=== PATIENT | male | born 2000 | race Caucasian/White ===

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

== ENCOUNTER → 2020-09-21 | Outpatient (CLI) | payer BC ==
--- NOTE | 2020-09-24 03:55 | CT ---
EXAMINATION TYPE: CT abdomen pelvis wo con DATE OF EXAM: 09/21/2020 COMPARISON: 03/16/2019 HISTORY: 20-year-old male RT side pain, radiating into back. CT DLP: 368.5 mGycm. Automated exposure control for dose reduction was used. TECHNIQUE: Contiguous axial scanning of the abdomen and pelvis without IV contrast. Coronal and sagit betty reconstructions performed. FINDINGS: Heart normal size without pericardial effusion. Lung bases clear without pleural effusion. Noncontrast appearance of the liver shows borderline size at 17.8 cm. Otherwise, noncontrast appearan ce of the gallbladder, adrenal glands, kidneys, and pancreas show no gross abnormality. The spleen is borderline in size at 13.1 cm. No dilated small bowel, free fluid, or free air. A few borderline to mildly enlarged right lower quadrant mesenteric lymph nodes measuring up to 1 cm, refer to coronal image 27 and 28. Additional scattered nonenlarged mesenteric lymph nodes throughout the remainder of the abdomen. Normal appendix. Mild stool burden. No pericolonic inflammatory change. Bowel circumferential bladder wall thickening. No abnormal fluid collection in the pelvis or pelvic l ymphadenopathy. Bones: There are bilateral L5 pars interarticularis defects without spondylolisthesis. IMPRESSION: 1. Numerous scattered nonenlarged mesenteric lymph nodes. Lymph nodes in the right lower quadrant ar e borderline to mildly enlarged measuring up to 1 cm. Findings may reflect a mild mesenteric adenitis . 2. The appendix is normal. No nephrolithiasis or hydronephrosis seen. 3. Mild circumferential bladder wall thickening. Correlate to exclude cystitis. 4. Bilateral L5 pars defects without spondylolisthesis.
== END | disposition home or self-care (01) ==
LOC: RADCTMAIN 17:55
PROVIDERS: ATTEND Family Medicine
DX: R59.0 Localized enlarged lymph nodes (principal); N32.89 Other specified disorders of bladder
CPT/HCPCS: 74176

== ENCOUNTER → 2021-02-22 | Outpatient (CLI) | payer BC ==
--- NOTE | 2021-02-23 09:19 | US ---
EXAMINATION TYPE: US groin RT DATE OF EXAM: 02/22/2021 COMPARISON: NONE CLINICAL HISTORY: L04.9 Acute lymphadenitis, unspecified. palpable within right groin for 2 weeks, no illness Multiple lymph nodes seen within right inguinal canal, largest = 2.7 x 1.7 x 0.7cm IMPRESSION: Right inguinal adenopathy.
== END | disposition home or self-care (01) ==
LOC: RADUSWWP 16:16
PROVIDERS: ATTEND Family Medicine
DX: R59.9 Enlarged lymph nodes, unspecified (principal)

== ENCOUNTER → 2024-04-19 | Outpatient (CLI) | payer OTHER ==
--- NOTE | 2024-04-19 11:42 | XR ---
EXAMINATION TYPE: XR chest 2V DATE OF EXAM: 04/19/2024 11:27 AM COMPARISON: None TECHNIQUE: XR chest 2V Frontal and lateral views of the chest. CLINICAL INDICATION:Male, 23 years old with history of R06.02 SOB; FINDINGS: Lungs/Pleura: There is no evidence of pleural effusion, focal consolidation, or pneumothorax. Pulmonary vascularity: Unremarkable. Heart/mediastinum: Cardiomediastinal silhouette is unremarkable. Musculoskeletal: No acute osseous pathology. IMPRESSION: No acute cardiopulmonary disease/process. [facility], , 04/19/2024 11:39 AM
--- NOTE | 2024-04-19 11:43 | XR ---
EXAMINATION TYPE: XR thoracic spine complete DATE OF EXAM: 04/19/2024 11:27 AM INDICATION: Patient age:Male; 23 years old; Reason for study: S29.012A strain thoracic spine; [facility]. COMPARISON: Chest radiograph of the same date TECHNIQUE: 3 views of the thoracic spine in frontal, lateral, and swimmer's projections. FINDINGS: No evidence of acute fracture. There is no evidence of disk space narrowing or loss of vertebral bod y height. There is normal alignment of the thoracic vertebral bodies. IMPRESSION: No acute osseous pathology. [facility], , 04/19/2024 11:40 AM
== END | disposition home or self-care (01) ==
LOC: RADXRMAIN 11:02
PROVIDERS: ATTEND Emergency Medicine
CPT/HCPCS: 71046; 72072